=== PATIENT | male | born 1970 | race Caucasian/White ===

== ENCOUNTER → 2025-03-03 | Outpatient (CLI) | payer BC, SELFPAY ==
--- NOTE | 2025-03-03 17:05 | XR_ITS ---
Examination: Bilateral AP knee single view TECHNIQUE: Standing bilateral AP knees 10 degrees caudal angulation of the tube Date and time: March 03, 2025 1710 hours INDICATIONS: Twisting injury to the knee 3 weeks ago FINDINGS: No acute fracture Moderate narrowing medial joint space right knee [id number] narrowing medial joint space left knee Meniscus calcification IMPRESSION: No acute fracture.
--- NOTE | 2025-03-03 17:05 | XR_ITS ---
Examination: Right knee 2 views TECHNIQUE: AP lateral right knee 2 views Date and time: March 03, 2025, 1718 hours INDICATIONS: Knee pain beginning 3 weeks ago. FINDINGS: Mild tricompartmental osteoarthritis. No fracture or dislocation Small knee effusion 4 mm anterior ossified joint body IMPRESSION: No fracture or dislocation
== END | disposition home or self-care (01) ==
PROVIDERS: Referring Provider Orthopaedic Surgery; Visit Provider Orthopaedic Surgery
DX: M25.562 Pain in left knee (principal); S89.92XA Unspecified injury of left lower leg, initial encounter; X50.1XXA Overexertion from prolonged static or awkward postures, initial encounter; Y93.9 Activity, unspecified
CPT/HCPCS: 73560; 73565

== ENCOUNTER → 2025-05-16 | Outpatient (CLI) | payer BC, SELFPAY ==
--- NOTE | 2025-05-16 10:30 | XR_ITS ---
Exam: MRI knee without contrast, left Date and time of exam: May 16, 2025, 10:42 a.m. INDICATIONS: Stiffness pain in the knee beginning 2 years ago Technique: Multiple axial, coronal, and sagittal sections on the knee have been obtained. T2-Weighted sagittal, fat-suppressed images, TR 3,500, TE 62, T2 weighted coronal fat-saturated images, TR 3,500, TE 62 Proton density sagittal sections, TR 1800, TE 31. T-1 weighted coronal images, TR 524, TE 13.0 Findings: Medial meniscus anterior horn intact. Medial meniscus, body meniscocapsular separation with truncation inner margin Posterior horn medial meniscus truncation anterior margin Lateral meniscus anterior horn is intact Lateral meniscus, body is intact Posterior horn lateral meniscus is intact Anterior cruciate ligament high-grade sprain versus complete tear Posterior cruciate ligament appears intact. Knee effusion is moderate. Quadriceps and patellar tendons appear intact. There is no evidence of tendinosis. Inflammatory change or fracture of Hoffa's fat pad is not seen. Medial patellar facet demonstrates mild thinning. Lateral patellar facet cartilage demonstrates mild thinning. Trochlear cartilage demonstrates mild thinning. Marrow signal adequate. Medial collateral ligament appears intact. Illiotibial band and fibular collateral ligament are intact. Biceps femoris tendons appear intact. Medial femoral condylar articular cartilage demonstrates moderate thinning. Lateral femoral condylar articular cartilage demonstrates moderate thinning. Tibial plateau cartilage demonstrates moderate thinning. Impression: Tears of the body and posterior horn medial meniscus Meniscocapsular separation body of the medial meniscus High-grade sprain versus complete tear anterior cruciate ligament
== END | disposition home or self-care (01) ==
LOC: SMRI 09:57
PROVIDERS: Referring Provider Orthopaedic Surgery; Visit Provider Orthopaedic Surgery
DX: S83.232A Complex tear of medial meniscus, current injury, left knee, initial encounter (principal); S83.512A Sprain of anterior cruciate ligament of left knee, initial encounter; X58.XXXA Exposure to other specified factors, initial encounter
CPT/HCPCS: 73721